=== PATIENT | male | born 1940 | race Caucasian/White ===

== ENCOUNTER → 2024-06-16 12:49 | Outpatient (REF) | payer MEDICARE, SELFPAY | LOC: MRI 3T 12:49 | PROVIDERS: ATTENDING PHYSICIAN Internal Medicine | DX: M54.9 Dorsalgia, unspecified (principal); M54.30 Sciatica, unspecified side | CPT/HCPCS: 72148 ==

== ENCOUNTER 2024-06-27 17:00 | Observation (INO) | payer MEDICARE, SELFPAY ==
[2024-06-27 10:27] VITALS: BP 135/76
--- NOTE | 2024-06-27 13:22 | ED.GENMED ---
Addendum entered and electronically signed by Peter Norris Jr., PA-C 06/27/24 15:58:
Update 1600: Patient unable to ambulate after steroids concerning this patient given additional muscle relaxer and Tylenol and plan to observe overnight for pain control possible placement if patient unable to ambulate.
Original Note:
History of Present Illness
General
Chief Complaint: Back Pain
Source: patient
Exam Limitations: none
Time Seen by Provider: 06/27/24 11:29
Nursing documentation reviewed up to this point in time: agreed with
History of Present Illness
History of Present Illness:
83-year-old male past medical history of aortic stenosis hypertension hyperlipidemia, renal insufficiency hypothyroidism presenting to the emergency department with concerns of ongoing back pain rating down the left leg. Denies any neurologic
symptoms change in bowel movements or urination. Has not significantly changed over the past few weeks. Recently had an MRI that showed multiple disc disease. Does have a follow-up appointment with [facility] in 1 week.
Past History
Past History
ED Past Medical History: Asthma, HTN, Hypercholesterolemia, Renal failure and Valvular disease
ED Past Surgical History: None
Social History
Tobacco: Non-smoker
Alcohol: None
Drug: None
Personal:
Living: with family
Employment: Retired
Review of Systems
Review of Systems
Allergies reviewed?: Yes
All Other Systems: ROS reviewed and negative except as documented in HPI and ROS
Phy Exam
Physical Exam
Physical Exam:
GENERAL: Alert , in no apparent distress
EYE: pupils equal and reactive
NECK: Supple, no significant adenopathy.
ENT: o/p clr, mmm.
CARDIAC: Regular rate and rhythm .
LUNGS: Clear breath sounds bilaterally, no acute respiratory distress, no wheezes/rales/rhonchi
ABDOMEN: Soft, without focal tenderness, no r/g, no cvat
NEUROLOGICAL: Alert and oriented, no focal neuro deficits
SKIN: Warm and dry, skin intact.
MUSCULOSKELETAL: No edema, well perfused.
PSYCH: Normal and appropriate interaction.
Course
Orders/Labs/Results
Orders:
Orders
06/27/24 12:57
Dexamethasone [Decadron] 10 mg PO NOW STA
Vital Signs
Initial and Last Documented VS:
Initial Vital Signs
Temp Pulse Resp BP Pulse Ox
97.1 F 93 17 135/76 99
06/27/24 10:27 06/27/24 10:27 06/27/24 10:27 06/27/24 10:27 06/27/24 10:27
Last Documented Vital Signs
Temp Pulse Resp BP Pulse Ox
97.1 F 93 17 135/76 99
06/27/24 10:27 06/27/24 10:27 06/27/24 10:27 06/27/24 10:27 06/27/24 10:27
MDM/Problems Addressed
MDM/Problems Addressed:
83-year-old male presenting to the emergency department today with concerns of back pain radiation down the left leg over the past few weeks no significant changes having difficulty at home dealing with comfort. On arrival here vital signs are
normal. No redness or warmth of the back no signs of spinal epidural abscess no signs of cauda equina no signs of secondary symptoms. Symptoms are not significantly changed over the last few weeks. He did have a recent MRI that showed disc
disease. Case was discussed with pain management recommending steroid and close follow-up for likely injection. At this point patient stable for discharge.
*Critical Care Note
Total Time (30-74mins, 75-104mins- exclusive of procedures): Not Applicable
ED Attending Note
-
Portions of this chart may have been created with voice recognition software.� Occasional wrong word or��sound alike� substitutions may have occurred due to the inherent limitations of voice recognition software.
Discharge Plan
Departure
Patient Disposition: Home (Routine Discharge)
Date of Disposition: 06/27/24
Time of Disposition: 13:25
Patient with high blood pressure during this ER visit?: No
Condition: Good
Covid-19: Not Applicable
Discharge Problem:
Back pain
Instructions: Low Back Pain (DC)
Prescriptions:
New
prednisone 20 mg tablet
40 mg PO DAILY 4 Days Qty: 8 0RF
No Action
atorvastatin 80 MG tablet
80 mg PO DAILY
clopidogrel 75 MG tablet
75 mg PO DAILY
pantoprazole 40 MG tablet,delayed release (DR/EC)
40 mg PO DAILY
lisinopril 10 MG tablet
10 mg PO DAILY
latanoprost (PF) 7.5 ML drops
7.5 ml OP HS
albuterol sulfate [Proair Digihaler] 90 MCG aero powdr breath act w/sensor
90 mcg IH Q4H PRN (Reason: wheezing)
Referrals:
Edwin Allen MD [Family Provider] -
Activity Restrictions/Additional Instructions:
You came to the emergency department today with concerns of back discomfort. Please follow closely with the back doctor and take the prednisone once daily for the next 4 days. Return to the emergency department any worsening, new or concerning
symptoms.
Interventions
Interventions:
*Risk Screen - Suicide Last Done: 06/27/24 11:09
*General Assessment Last Done: 06/27/24 11:09
*Neglect/Abuse Screening Last Done: 06/27/24 11:09
*ED COVID-19 Vaccine History Last Done: 06/27/24 11:09
ED-Musculoskeletal Assessment Last Done: 06/27/24 11:09
Discharge Date and Time
Print Language: PALESTINIAN
[2024-06-27] MEDS: DECADRON 10 MG PO (14:00)
[2024-06-27 15:57] VITALS: BP 157/130; PULSE 106; O2SAT 96
[2024-06-27] MEDS: VALIUM 5 MG PO (16:10)
[2024-06-27] MEDS: TYLENOL 650 MG PO (16:10)
[2024-06-27 16:13] VITALS: BP 139/80; BMI 26.9
--- NOTE | 2024-06-27 16:14 | CM ---
Addendum entered by Danuta Torres 06/27/24 16:21:
Patient lives at home with his . He has a daughter for support. He is independent. He shared with CM that he uses either a walker or cane to ambulated and transfer. 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
Original Note:
Chart reviewed. Case management consult placed for patient's back pain. PT arrived to room as CM was introducing self and role. PT assessed patient. As she was assessing patient, he starting to yell and was thriving in pain. PT immediately stopped
assessment. She updated Ed, RUBI on her assessment.
Jorge L has a who has dementia. 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 He became very tearful when speaking about her. CM asked who is currently with his now. He stated that his daughter, Guerrero, was with his . Jorge L called his daughter on his personal
phone and CM and Jorge L explained PT's assessment. She confirmed that she would stay with her mother and that Jorge L only needed to worry about getting better. He became tearful again.
--- NOTE | 2024-06-27 16:15 | HPS.HSE ---
Family Physician
-
Family Physician: Edwin Allen
Chief Complaint
-
left lE pain
History of Present Illness
83-year-old male past medical history of aortic stenosis hypertension hyperlipidemia, renal insufficiency hypothyroidism presenting to the emergency department with concerns of left LE pain for past one month. he was on short course of prednisone
with no improvement in his symptoms. for past few days, he is not able to ambulate due to the pain. denied any incontinence of bowel or bladder. denied dysuria or hematuria. denied abdominal pain,n ,v,d. denied fever, chills, chest pain, sob.denied
CAMPBELL, dizzy or syncopal episode.
Patient received Tylenol, Decadron, Valium in ER. Patient admitted with PT, but he was not able to ambulate admitted for further management.
Medical History
Past Medical History
Past Medical History: Reports Other
Additional Past Medical History:
Anemia
Aortic valve stenosis
Stage III chronic kidney disease
bilateral carotid arteries
Hyperlipidemia
Hypertension
Peripheral vascular disease
Past Surgical History: Reports Other
Additional Past Surgical History:
vasectomy
carotid enterectomy right
Social History
Tobacco: Non-smoker
Alcohol: None
Drug: None
Personal:
Living: With Family
Family History
Family History: Not pertinent
Allergies / Home Medications
Allergies reflects when Allergies were last updated in [facility].
Home Medications with original date entered in [facility]
Allergy/Medication List:
Allergies
Allergy/AdvReac Type Severity Reaction Status Date / Time
aspirin Allergy WHEEZING Verified 06/27/24 10:26
ibuprofen [From Advil] Allergy WHEEZING Verified 06/27/24 10:26
Penicillins Allergy difficulty Verified 06/27/24 10:26
breathing
antiinflamatories Allergy Shortness Uncoded 06/27/24 10:26
of Breath
environmental Allergy congestion, Uncoded 06/27/24 10:26
wheezing
Home Medications
atorvastatin 80 mg tablet 80 mg PO DAILY 06/10/20
clopidogrel 75 mg tablet 75 mg PO DAILY 06/10/20
lisinopril 10 mg tablet 10 mg PO DAILY 06/10/20
pantoprazole 40 mg tablet,delayed release 40 mg PO DAILY 06/10/20
acetaminophen 500 mg tablet (Tylenol Extra Strength) 1,000 mg PO Q6HPRN PRN mild pain 06/27/24
cyclobenzaprine 10 mg tablet 10 mg PO TIDPRN PRN back pain 06/27/24
latanoprost 0.005 % eye drops 1 drp BOTH EYES HS 06/27/24
vitamins A,C,V-aedt-wvolbl 4,296 mcg-226 mg-90 mg capsule (PreserVision AREDS) 2 cap PO DAILY 06/27/24
Review of Systems
-
Constitutional: Reports No Symptoms
EENT: Reports No Symptoms
Respiratory: Reports No Symptoms
Cardiac: Reports No Symptoms
Abdomen/GI: Reports No Symptoms
: Reports No Symptoms
Musculoskeletal: Reports Other (Left lower extremities pain)
Skin: Reports No Symptoms
Neurological: Reports No Symptoms
Endocrine: Reports No Symptoms
Hematologic/Lymphatic: Reports No Symptoms
Psych: Reports No Symptoms
Physical Exam
Vital Signs
Vital Signs
Temp Pulse Resp BP Pulse Ox
97.1 F 99 18 139/80 99
06/27/24 10:27 06/27/24 16:13 06/27/24 16:13 06/27/24 16:13 06/27/24 16:13
Physical Exam
General: Well Developed, Well Nourished and No Apparent Distress
HEENT: NormoCephalic, Moist mucous membranes and Atraumatic
Respiratory: Clear
Cardiac: S1/S2 and Regular Rhythm; No Murmur or Rub
GI: Soft, Non Tender, Non Distended and Normal Bowel Sounds; No Organomegaly
Rectal: Deferred by Provider
Musculoskeletal: No Clubbing, No Cyanosis and Other (Chronic lower extremities edema)
Skin: No Rash
Neuro: AO x 3 and Nonfocal/grossly intact
Psych: Calm
Data Reviewed
-
MRI: Report Reviewed by me
Impression/Plan
-
# left LE pain likely sciatica pain
-Lumbar MRI with moderate bilateral degenerative hypertrophic facet joint disease at L4-5 with 1 mm grade 1 spondylolisthesis of L4 on L5. This pseudobulge from this spondylolisthesis along with mild posterior bulging of the intervertebral disc and
the degenerative facet joint disease is associated with mild-moderate concentric central canal stenosis and mild bilateral L4 foraminal stenosis below the level of exit of the L4 nerve roots.Minimal concentric bulging of the L1-2, L2-3 and L1 L3-4
intervertebral discs is associated with only minimal impingement upon the anterior aspect of the thecal sac at each of these levels without significant canal or foraminal stenosis.
-Received Tylenol, Decadron and Valium in ER
-Physical therapist consulted
-Tylenol ATC, gabapentin added
-Flexeril continued
-lidocaine patch
-PT/OT consult
# Hyperlipidemia
-statin continued
# History of aortic stenosis
# History of CKD stage III
#History of coronary artery disease
-Plavix continued
# Essential hypertension
-Lisinopril continued
# GERD
-PPI continued
#DVT prophylaxis
-Heparin subcu
# CODE STATUS
-Full code
--- NOTE | 2024-06-27 16:28 | CM ---
CM explained to daughter and patient that Jorge L would continue to work with PT, as able. CM also explained that the goal would be to control the writhing pain. Patient and daughter verbalized understanding and agreeable to plan.
[2024-06-27 16:35] LABS: % Basophils 0.4 % (0-2); % Eosinophils 1.1 % (0-6); % Immature Granulocytes 0.3 % (0-0.5); % Lymphocytes 8.2 % (20.5-51.1); % Monocytes 3.1 % (1.7-9.3); % Neutrophils 86.9 % (42.2-75.2); Absolute Eosinophils 0.1 10^3/uL (0-0.7); Absolute Lymphocytes 0.8 10^3/uL (1.2-3.4); Absolute Monocytes 0.3 10^3/uL (0.1-0.6); Absolute Neutrophils 8.3 10^3/uL (1.4-6.5); Hematocrit 33.4 % (39.0-52.0); Hemoglobin 11.6 g/dL (13.0-18.0); Mean Corp Hgb Conc. 34.7 g/dL (33.0-37.0); Mean Corpuscular Hgb 30.4 pg (27.0-31.0); Mean Corpuscular Volume 87.4 fL (80.0-94.0); Mean Platelet Volume 9.2 fL (7.4-10.4); Nucleated Red Blood Cells % 0 % (-); Platelet Count 255 10^3/uL (130-400); Red Blood Cell Count 3.82 10^6/uL (4.70-6.10); Red Cell Dist. Width 13.9 % (11.5-14.5); White Blood Cell Count 9.6 10^3/uL (4.8-10.8)
[2024-06-27 16:57] LABS: Blood Urea Nitrogen 24 mg/dl (9-20); Calcium 9.7 mg/dl (8.4-10.2); Carbon Dioxide 24 mmol/L (22-30); Chloride 101 mmol/L (98-107); Estimated Creatinine Clearance 44 ml/min; Glucose 113 mg/dl (70-99); Potassium 4.7 mmol/L (3.5-5.1); Sodium 132 mmol/L (135-145); eGFR > 60.00
--- NOTE | 2024-06-27 17:01 | W.PN.UPDATE ---
Update Note
Progress Note Update
This is an addendum to the H&P written by Iesha Chaidez on 06/27/2024. Patient seen and examined independently with [employer].
83-year-old male past medical history of longstanding degenerative disc disease, aortic stenosis, hypertension, hyperlipidemia, CKD, hypothyroidism presenting with severe left hip pain radiating down left leg with movement. Recently had MRI lumbar
spine which showed moderate bilateral degenerative hypertrophic facet joint disease at L4-L5 and spondylolisthesis. Significant pain on straight leg raise test, decreased strength.
Recently treated with steroids. He is scheduled to see Dr. Mcpherson in the near future. Tylenol, gabapentin, lidocaine patch, Dilaudid for severe pain. Continue cyclobenzaprine. PT/OT.
[2024-06-27 18:28] VITALS: BP 146/86
[2024-06-27 18:29] VITALS: BMI 24.9
[2024-06-27] MEDS: LIDOCAINE 4% PATCH 1 PATCH TOPICAL (19:58)
[2024-06-27] MEDS: HEPARIN 5000 UNITS SC (19:58)
[2024-06-27 21:48] LABS: Urine Albumin Negative (Neg - Trace); Urine Bilirubin Negative (Negative); Urine Character Clear (Clear); Urine Color Yellow; Urine Glucose Negative (Negative); Urine Ketone Negative (Negative); Urine Leukocyte Trace (Negative); Urine Nitrite Negative (Negative); Urine Occult Blood Negative (Negative); Urine Specific Gravity 1.005 (<1.030); Urine Urobilinogen Negative (Neg - 1+)
[2024-06-27] MEDS: XALATAN OPHTHALMIC SOLUTION 1 DROP BOTH EYES (21:53)
[2024-06-27] MEDS: NEURONTIN 100 MG PO (21:55)
[2024-06-27] MEDS: TYLENOL 1000 MG PO (21:55)
[2024-06-27 21:56] LABS: Urine Bacteria Few (Negative); Urine White Cell 0-2 /HPF (0-5)
[2024-06-27 23:59] VITALS: BP 118/68
[2024-06-28] MEDS: DILAUDID 1 MG IV ×2 (01:36→08:58)
[2024-06-28 07:10] VITALS: BP 125/70
[2024-06-28 08:14] LABS: Hematocrit 34.1 % (39.0-52.0); Hemoglobin 11.9 g/dL (13.0-18.0); Mean Corp Hgb Conc. 34.9 g/dL (33.0-37.0); Mean Corpuscular Hgb 30.9 pg (27.0-31.0); Mean Corpuscular Volume 88.6 fL (80.0-94.0); Mean Platelet Volume 9.9 fL (7.4-10.4); Platelet Count 262 10^3/uL (130-400); Red Blood Cell Count 3.85 10^6/uL (4.70-6.10); Red Cell Dist. Width 13.7 % (11.5-14.5); White Blood Cell Count 5.9 10^3/uL (4.8-10.8)
[2024-06-28 08:47] LABS: Blood Urea Nitrogen 28 mg/dl (9-20); Calcium 9.9 mg/dl (8.4-10.2); Carbon Dioxide 22 mmol/L (22-30); Chloride 101 mmol/L (98-107); Estimated Creatinine Clearance 40 ml/min; Glucose 123 mg/dl (70-99); Potassium 4.9 mmol/L (3.5-5.1); Sodium 132 mmol/L (135-145); eGFR 54.51
[2024-06-28] MEDS: LIPITOR 80 MG PO (08:56)
[2024-06-28] MEDS: ZESTRIL 10 MG PO (08:57)
[2024-06-28] MEDS: LIDOCAINE 4% PATCH 1 PATCH TOPICAL (08:57)
[2024-06-28] MEDS: HEPARIN 5000 UNITS SC ×2 (08:57→21:05)
[2024-06-28] MEDS: PROTONIX 40 MG PO (08:57)
[2024-06-28] MEDS: TYLENOL 1000 MG PO ×3 (08:57→21:05)
[2024-06-28] MEDS: PLAVIX 75 MG PO (08:58)
[2024-06-28 09:30] VITALS: BP 126/80; PULSE 98
--- NOTE | 2024-06-28 10:53 | W.PN.HOSP.TC ---
Today's Communication/Plan
-
Pain control, PT/OT, acute rehab/SNF placement
Assessment / Plan
Assessment / Plan
Physical Exam
General: Not in acute distress
HEENT: Normocephalic
Respiratory: Clear to Auscultation Bilaterally
Cardiac: S1/S2 and Regular Rhythm
GI: Soft, Non Tender, Non Distended and Normal Bowel Sounds
Musculoskeletal: No Cyanosis and Other (Chronic lower extremity edema)
Skin: Warm. Dry.
Neuro: AAO x 3 and Nonfocal/grossly intact
Psych: Calm
Assessment/Plan
#Presentation with severe left hip pain radiating down left leg with any movement
#Degenerative Disc Disease
-Recent Lumbar MRI with moderate bilateral degenerative hypertrophic facet joint disease at L4-5 with 1 mm grade 1 spondylolisthesis of L4 on L5. This pseudobulge from this spondylolisthesis along with mild posterior bulging of the intervertebral
disc and the degenerative facet joint disease is associated with mild-moderate concentric central canal stenosis and mild bilateral L4 foraminal stenosis below the level of exit of the L4 nerve roots.Minimal concentric bulging of the L1-2, L2-3 and
L1 L3-4 intervertebral discs is associated with only minimal impingement upon the anterior aspect of the thecal sac at each of these levels without significant canal or foraminal stenosis.
-Received Tylenol, Decadron and Valium in ER
-Physical therapist consulted
-Scheduled to see pain management physician Dr. Mcpherson in the future
-Tylenol ATC, gabapentin added
-Flexeril continued
-lidocaine patch
-PT/OT consult
# Hyperlipidemia
-statin continued
# History of aortic stenosis
# History of CKD stage III
#History of coronary artery disease
-Plavix continued
# Essential hypertension
-Lisinopril continued
#Hypothyroidism history?
# GERD
-PPI continued
#DVT Prophylaxis
-Heparin subcutaneous
# CODE STATUS
-Full code
Anticipated Discharge: 24 - 48 hours
Subjective/Interval History
-
Date of Service: June 28, 2024
Patient was seen and examined. He reported his pain is better, nurse reported that whenever he moves he gets significant pain. He denied any back pain, fever, numbness or tingling.
Objective Data
-
Labs:
Laboratory Results
06/28/24
06:47
WBC 5.9
Hgb 11.9 L
Hct 34.1 L
Plt Count 262
Sodium 132 L
Potassium 4.9
Chloride 101
Carbon Dioxide 22
BUN 28 H
Creatinine 1.3
Glucose 123 H
Calcium 9.9
Vital Signs:
Vital Signs
Temp Pulse Resp BP Pulse Ox
97.5 F 83 16 125/70 98
06/28/24 07:10 06/28/24 08:57 06/28/24 07:10 06/28/24 08:57 06/28/24 07:10
I&O
06/27/24 06/28/24 06/29/24
06:59 06:59 06:59
Intake Total 480 / 480
Output Total 1000 / 1000
Balance -520 / -520
[2024-06-28 15:26] VITALS: BP 88/47
[2024-06-28 15:45] VITALS: BP 106/47
[2024-06-28] MEDS: NEURONTIN 100 MG PO (21:05)
[2024-06-28] MEDS: XALATAN OPHTHALMIC SOLUTION 1 DROP BOTH EYES (21:05)
[2024-06-28 23:13] VITALS: BP 102/59
[2024-06-29 04:46] VITALS: BP 96/58
[2024-06-29] MEDS: DILAUDID 1 MG IV (04:48)
[2024-06-29 07:58] VITALS: BP 99/49
[2024-06-29] MEDS: TYLENOL 1000 MG PO ×2 (08:30→15:14)
[2024-06-29] MEDS: ZESTRIL 10 MG PO (08:30)
[2024-06-29] MEDS: HEPARIN 5000 UNITS SC (08:30)
[2024-06-29] MEDS: LIPITOR 80 MG PO (08:31)
[2024-06-29] MEDS: PROTONIX 40 MG PO (08:31)
[2024-06-29] MEDS: LIDOCAINE 4% PATCH 1 PATCH TOPICAL (08:31)
[2024-06-29] MEDS: PLAVIX 75 MG PO (08:31)
[2024-06-29 10:37] VITALS: BP 78/49; BP 81/45; BP 93/48; PULSE 75
[2024-06-29] MEDS: MIRALAX 17 GRAMS PO (11:14)
--- NOTE | 2024-06-29 12:26 | CM ---
CM met with Jorge L at bedside yesterday. He and his live in a [place] community. Jorge L's has dementia and cannot be left alone. She does go to a 4 hour 'class' once a week which gives Jorge L the ability to go shopping and any appointments.
Their daughter is currently staying with his .
Jorge L has been participating in therapy and is ready for discharge today. He is agreeable to home care services to continue working on his strength so he can continue caring for his . [facility] sent.
Plan: Discharge to home with [facility]. Family will transport home.
PCP: Faustino Allen
Pharm: [facility] in [place]
--- NOTE | 2024-06-29 12:31 | W.PN.HOSP.TC ---
Today's Communication/Plan
-
Discharge today
Assessment / Plan
Assessment / Plan
Physical Exam
General: Not in acute distress
HEENT: Normocephalic
Respiratory: Clear to Auscultation Bilaterally
Cardiac: S1/S2 and Regular Rhythm
GI: Soft, Non Tender, Non Distended and Normal Bowel Sounds
Musculoskeletal: No Cyanosis and Other (Chronic lower extremity edema)
Skin: Warm. Dry.
Neuro: AAO x 3 and Nonfocal/grossly intact
Psych: Calm
Assessment/Plan
#Presentation with severe left hip pain radiating down left leg with any movement
#Degenerative Disc Disease
-Recent Lumbar MRI with moderate bilateral degenerative hypertrophic facet joint disease at L4-5 with 1 mm grade 1 spondylolisthesis of L4 on L5. This pseudobulge from this spondylolisthesis along with mild posterior bulging of the intervertebral
disc and the degenerative facet joint disease is associated with mild-moderate concentric central canal stenosis and mild bilateral L4 foraminal stenosis below the level of exit of the L4 nerve roots.Minimal concentric bulging of the L1-2, L2-3 and
L1 L3-4 intervertebral discs is associated with only minimal impingement upon the anterior aspect of the thecal sac at each of these levels without significant canal or foraminal stenosis.
-Received Tylenol, Decadron and Valium in ER
-Physical therapist consulted
-Scheduled to see pain management physician Dr. Mcpherson on July 04, 2024
-Tylenol ATC, gabapentin and Lidocaine patch on discharge
-PT/OT consult
#Hypotension
-Asymptomatic
-Hold patient's home Lisinopril on discharge
-Patient understands and is okay with no narcotic pain medications going forward
# Hyperlipidemia
-statin continued
# History of aortic stenosis
# History of CKD stage III
#History of coronary artery disease
-Plavix continued
# Essential hypertension
-Lisinopril will be held due to hypotension
#Hypothyroidism history?
# GERD
-PPI continued
#DVT Prophylaxis
-Heparin subcutaneous
# CODE STATUS
-Full code
More than 30 minutes spent in discharge including
Final examination of the patient
Summarizing hospital stay
Instructions for continuing care to all relevant caregivers
Preparation of discharge records, prescriptions, and referral forms
Total time spent (in minutes): 38
Anticipated Discharge: Today
Subjective/Interval History
-
Date of Service: June 29, 2024
Patient was seen and examined. His blood pressure was running low, but he denied any dizziness/lightheadedness, chest pain, shortness of breath, palpitations or any other symptoms or complaints. He has been getting up and walking around well.
Objective Data
-
Vital Signs:
Vital Signs
Temp Pulse Resp BP Pulse Ox
97.4 F 65 18 99/49 98
06/29/24 07:58 06/29/24 08:30 06/29/24 07:58 06/29/24 08:30 06/29/24 07:58
I&O
06/28/24 06/29/24 06/30/24
06:59 06:59 06:59
Intake Total 1120 / 1120
Output Total 1750 / 1750 400 / 400
Balance -630 / -630 -400 / -400
[2024-06-29 12:33] VITALS: BP 101/47
--- NOTE | 2024-06-29 13:13 | VNURNOTE ---
Home Health Liaison met with patient at bedside to discuss [facility] nurse/therapy, visits, schedule and homebound status. Patient is agreeable and understands that visits at home will be 1-2 x per week to assess and teach medical management. [facility]
brochure provided with contact information. Patient is aware that [facility] will contact them for start of care within a few days after discharge from .
[facility] referral completed in [facility].
--- NOTE | 2024-06-29 13:23 | W.DS.TRANS ---
DC Summary - Final Installer Inspector
-
Discharge Instructions:
Discharge Diagnosis/Procedures #Presentation with severe left hip pain
radiating down left leg with any movement
#Degenerative Disc Disease
#Hypotension
#Hyperlipidemia
#History of aortic stenosis
#History of CKD stage III
#History of coronary artery disease
#Essential hypertension
#Hypothyroidism history?
# GERD
Diet Low Fat,Low Cholesterol
Activity As tolerated
Driving Restrictions No driving
Other Services [facility]
Instructions: Gabapentin
Stand-Alone Forms:
Changes to Home Medications: Yes
Discharge Medications:
DC Medications w/original date entered in [employer]
atorvastatin 80 mg tablet 80 mg PO DAILY 06/10/20
clopidogrel 75 mg tablet 75 mg PO DAILY 06/10/20
lisinopril 10 mg tablet 10 mg PO DAILY 06/10/20
pantoprazole 40 mg tablet,delayed release 40 mg PO DAILY 06/10/20
acetaminophen 500 mg tablet (Tylenol Extra Strength) 1,000 mg PO Q6HPRN PRN mild pain 06/27/24
cyclobenzaprine 10 mg tablet 10 mg PO TIDPRN PRN back pain 06/27/24
latanoprost 0.005 % eye drops 1 drp BOTH EYES HS 06/27/24
vitamins A,C,B-uisl-bbnblr 4,296 mcg-226 mg-90 mg capsule (PreserVision AREDS) 2 cap PO DAILY 06/27/24
gabapentin 100 mg capsule 100 mg PO HS #10 caps 06/29/24
lidocaine 4 % topical patch 1 patch topical DAILY #15 ea 06/29/24
polyethylene glycol 3350 17 gram oral powder packet (HealthyLax) 17 g PO DAILY #30 ea 06/29/24
Home Medication Changes
Gabapentin, Lidocaine Patch and HealthyLax are new medications.
Lisinopril is being held due to low blood pressures in the hospital -- discuss with your primary care provider if and when you should resume the Lisinopril.
Pending Results: No
Total time spent discharging patient (in min): 38
[2024-06-29 15:17] VITALS: BP 127/53
== END 2024-06-29 15:47 | disposition home health service (06) ==
LOC: 4 EAST ACU 17:00
PROVIDERS: Physician Assistant; Registered Nurse; ADMITTING PHYSICIAN Hospitalist; ATTENDING PHYSICIAN Hospitalist; EMERGENCY PHYSICIAN Emergency Medicine; FAMILY PHYSICIAN Internal Medicine
DX: M43.16 Spondylolisthesis, lumbar region (principal); M47.819 Spondylosis without myelopathy or radiculopathy, site unspecified; M48.061 Spinal stenosis, lumbar region without neurogenic claudication; M51.36 Other intervertebral disc degeneration, lumbar region; M25.552 Pain in left hip; M54.9 Dorsalgia, unspecified; I35.0 Nonrheumatic aortic (valve) stenosis; I12.9 Hypertensive chronic kidney disease with stage 1 through stage 4 chronic kidney disease, or unspecified chronic kidney disease; E03.9 Hypothyroidism, unspecified; E78.00 Pure hypercholesterolemia, unspecified; J45.909 Unspecified asthma, uncomplicated; M54.50 Low back pain, unspecified; I73.9 Peripheral vascular disease, unspecified; D64.9 Anemia, unspecified; I25.10 Atherosclerotic heart disease of native coronary artery without angina pectoris; K21.9 Gastro-esophageal reflux disease without esophagitis; N18.30 Chronic kidney disease, stage 3 unspecified; I95.9 Hypotension, unspecified; Z88.6 Allergy status to analgesic agent; Z79.02 Long term (current) use of antithrombotics/antiplatelets; Z88.0 Allergy status to penicillin
CPT/HCPCS: 80048; 81003; 81015; 85025; 85027; 97167; 97530; 99284; G0378